=== PATIENT | female | born 1975 | race Caucasian/White ===

== ENCOUNTER 2021-07-31 15:12 | Emergency (ER) | payer BC ==
[~2021-07-31] VITALS: Ht 157.5 cm; Wt 61.2 kg
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
[2021-07-31] MEDS ORDERED: NAPR-1192 PO (16:01)
--- NOTE | 2021-07-31 16:07 | NUR ---
Gave pt RX and d/c instructions, pt verbalized understanding.
== END 2021-07-31 16:08 | disposition home or self-care (01) ==
LOC: ER 15:14
DX: S06.0X9A Concussion with loss of consciousness of unspecified duration, initial encounter (principal); V49.40XA Driver injured in collision with unspecified motor vehicles in traffic accident, initial encounter; Y92.410 Unspecified street and highway as the place of occurrence of the external cause; R51.9 Headache, unspecified
CPT/HCPCS: A4663